=== PATIENT | female | born 1930 | race Asian ===

== ENCOUNTER 2017-10-06 16:23 | Inpatient (IN) | payer OTHER ==
[~2017-10-06] VITALS: Ht 152.4 cm; Wt 54.4 kg
[~2017-10-06 16:23] MED LIST: ALEVE220 MG PO; FUROSEMIDE20 MG PO; LASIX20 MG PO; LISINOPRIL-HCT1 EACH PO; PERCOCET 5/31 TABLET PO; SPIRONOLACTONE25 MG PO
[2017-10-06 16:51] LABS: HEMATOCRIT 40.5 % (36.0-46.0); HEMOGLOBIN 13.1 G/DL (11.9-15.5); MCH 26.5 PG (29.0-34.0); MCHC 32.3 G/DL (30.0-36.0); PLATELET COUNT 112 K/uL (156-360); RBC DIS.WIDTH-CV 15.9 % (11.8-14.6); RBC DIS.WIDTH-SD 46.9 % (39-53); RED BLOOD COUNT 4.94 M/uL (3.80-5.20); WHITE BLOOD COUNT 15.7 K/uL (4.1-10.2)
[2017-10-06 17:02] LABS: CHLORIDE 115 mEq/L (99-109); POTASSIUM 4.4 mEq/L (3.7-5.4); SODIUM 145 mEq/L (136-147)
[2017-10-06 17:03] LABS: GLUCOSE 98 mg/dL (70-99)
[2017-10-06 17:07] LABS: CREATININE 0.8 mg/dL (0.6-1.3); GFR ESTIMATE (CALCULATED) > 59 mL/min/
[2017-10-06 17:08] LABS: UREA NITROGEN (BUN) 34 mg/dL (9-23)
[2017-10-06] MEDS ORDERED: LISINOPRIL20 MG PO (17:09)
[2017-10-06] MEDS ORDERED: ALDACTONE25 MG PO (17:10)
[2017-10-06 17:16] LABS: TROP-I INTERPRETATION NEGATIVE; TROPONIN-I 0.03 ng/mL (0.0-0.30)
[2017-10-06 18:03] LABS: ALBUMIN 2.3 g/dL (3.2-4.8)
[2017-10-06 18:07] LABS: PTT 30.1 SEC (25-37)
[2017-10-06 18:08] LABS: TOTAL BILIRUBIN 1.7 mg/dL (0.0-1.0)
[2017-10-06 18:09] LABS: ALKALINE PHOSPHATASE 141 IU/L (3-129)
[2017-10-06 18:11] LABS: AST (GOT) 51 IU/L (2-34); DIRECT BILIRUBIN 1.1 mg/dL (0.0-0.3)
[2017-10-06 18:12] LABS: ALT (GPT) 33 IU/L (3-49)
[2017-10-06 22:10] LABS: C DIFF TOXIN NEGATIVE (NEGATIVE)
[2017-10-06] MEDS ORDERED: ALEVE220 MG PO (23:54)
[2017-10-07 02:56] VITALS: BP 144/75
[2017-10-07 06:43] LABS: HEMATOCRIT 37.8 % (36.0-46.0); MCH 25.9 PG (29.0-34.0); MCHC 31.7 G/DL (30.0-36.0); MCV 81.5 FL (83-99); PLATELET COUNT 95 K/uL (156-360); RBC DIS.WIDTH-CV 16.1 % (11.8-14.6); RBC DIS.WIDTH-SD 46.9 % (39-53); RED BLOOD COUNT 4.64 M/uL (3.80-5.20); WHITE BLOOD COUNT 14.7 K/uL (4.1-10.2)
[2017-10-07 07:06] LABS: CHLORIDE 112 MEQ/L (99-109); CREATININE 0.9 MG/DL (0.6-1.3); GFR ESTIMATE (CALCULATED) > 59 mL/min/; GLUCOSE 146 mg/dL (70-99); POTASSIUM 4.5 MEQ/L (3.7-5.4); SODIUM 144 MEQ/L (136-147); UREA NITROGEN (BUN) 38 mg/dL (9-23)
[2017-10-07 08:08] VITALS: BP 127/60
[2017-10-07 13:48] LABS: C DIFF TOXIN ND (NEGATIVE)
[2017-10-07 16:03] VITALS: BP 112/59
[2017-10-07 18:45] LABS: HEMATOCRIT 36.8 % (36.0-46.0); HEMOGLOBIN 11.8 G/DL (11.9-15.5)
[2017-10-07 19:39] VITALS: BP 136/61
[2017-10-07 23:28] VITALS: BP 125/59
[2017-10-08 03:13] VITALS: BP 118/58
[2017-10-08 07:42] LABS: BASOPHIL (%) 0.3 % (0-1); EOSINOPHIL (%) 3.4 % (0-5); EOSINOPHIL COUNT 0.4 K/uL (0-0.3); HEMATOCRIT 33.6 % (36.0-46.0); IMMATURE GRANULOCYTE (%) 1.3 % (0.0-0.7); LYMPHOCYTE (%) 17.1 % (15-42); MCH 26.3 PG (29.0-34.0); MCHC 32.7 G/DL (30.0-36.0); MCV 80.4 FL (83-99); MONOCYTE (%) 7.8 % (3-12); MONOCYTE COUNT 0.9 K/uL (0-0.8); NEUTROPHIL (%) 70.1 % (45-76); NEUTROPHIL COUNT 8.1 K/uL (1.8-6.4); RBC DIS.WIDTH-CV 15.9 % (11.8-14.6); RBC DIS.WIDTH-SD 46.1 % (39-53); RED BLOOD COUNT 4.18 M/uL (3.80-5.20); WHITE BLOOD COUNT 11.6 K/uL (4.1-10.2)
[2017-10-08 07:45] LABS: PTT 50.1 SEC (25-37)
[2017-10-08 07:59] LABS: HEMATOLOGY COMMENT 1 SMEAR COMPATIBLE; PLAT.SUFFICIENCY DECREASED
[2017-10-08 08:18] VITALS: BP 127/60
[2017-10-08 08:37] LABS: PLATELET COUNT 55 K/uL (156-360)
[2017-10-08 08:54] LABS: CHLORIDE 114 MEQ/L (99-109); GFR ESTIMATE (CALCULATED) 55 mL/min/; GLUCOSE 91 mg/dL (70-99); POTASSIUM 4.1 MEQ/L (3.7-5.4); SODIUM 143 MEQ/L (136-147); UREA NITROGEN (BUN) 38 mg/dL (9-23)
[2017-10-08 12:46] VITALS: BP 118/56
[2017-10-08 12:54] LABS: TYPE OF FLUID PLEURAL
[2017-10-08 13:54] LABS: BODY FLUID GLUCOSE 131 MG/DL; BODY FLUID LDH 57 IU/L; BODY FLUID PROTEIN < 3.0 G/DL
[2017-10-08 14:09] LABS: APPEARANCE HAZY-COLORLESS; BODY FLUID EOSINOPHILS 0 % (0-25); BODY FLUID RBC'S 1000 /MM^3 (0-100); BODY FLUID WBC'S 145 /MM^3 (0-500); MONONUCLEAR WBC'S 81 %; POLYNUCLEAR WBC'S 19 % (0-25)
[2017-10-08 14:16] LABS: HEMATOCRIT 35.6 % (36.0-46.0); HEMOGLOBIN 11.4 G/DL (11.9-15.5); MCH 26.3 PG (29.0-34.0); MCV 82.2 FL (83-99); RBC DIS.WIDTH-CV 15.9 % (11.8-14.6); RBC DIS.WIDTH-SD 47.6 % (39-53); RED BLOOD COUNT 4.33 M/uL (3.80-5.20); WHITE BLOOD COUNT 9.2 K/uL (4.1-10.2)
[2017-10-08 14:17] LABS: PLATELET COUNT 76 K/uL (156-360)
[2017-10-08 14:36] LABS: ALBUMIN 1.7 G/DL (3.2-4.8); ALKALINE PHOSPHATASE 91 IU/L (3-129); ALT (GPT) 23 IU/L (3-49); AST (GOT) 35 IU/L (2-34); DIRECT BILIRUBIN 0.2 mg/dL (0.0-0.3); LACTATE DEHYDROGENASE 383 IU/L (20-246); TOTAL BILIRUBIN 0.8 MG/DL (0.0-1.0); TOTAL PROTEIN 4.2 G/DL (6.4-8.3)
[2017-10-08 17:13] VITALS: BP 120/58
[2017-10-08 20:00] VITALS: BP 141/64
[2017-10-08 22:49] VITALS: BP 112/55
[2017-10-08 23:38] LABS: HEMATOCRIT 30.5 % (36.0-46.0); HEMOGLOBIN 9.9 G/DL (11.9-15.5); MCV 81.6 FL (83-99)
[2017-10-08 23:47] LABS: INTER. NORMALIZED RATIO 1.2
[2017-10-08 23:49] LABS: PTT 37.4 SEC (25-37)
[2017-10-09] VITALS (39 sets, daily range): BP systolic 84–175; BP diastolic 36–88
[2017-10-09 02:11] LABS: HEMATOCRIT 26.3 % (36.0-46.0); HEMOGLOBIN 8.7 G/DL (11.9-15.5); MCV 81.7 FL (83-99)
[2017-10-09 02:17] LABS: INTER. NORMALIZED RATIO 1.3
[2017-10-09 02:19] LABS: PTT 38.5 SEC (25-37)
[2017-10-09 05:52] LABS: HEMATOCRIT 27.4 % (36.0-46.0); HEMOGLOBIN 8.6 G/DL (11.9-15.5); MCV 84.6 FL (83-99)
[2017-10-09 12:31] LABS: CHLORIDE 114 MEQ/L (99-109); POTASSIUM 4.9 MEQ/L (3.7-5.4); SODIUM 144 MEQ/L (136-147)
[2017-10-09 12:36] LABS: GFR ESTIMATE (CALCULATED) 55 mL/min/; GLUCOSE 128 mg/dL (70-99); PHOSPHORUS 3.8 mg/dL (2.5-4.9); UREA NITROGEN (BUN) 40 mg/dL (9-23)
[2017-10-09 13:47] LABS: HEMATOCRIT 13.6 % (36.0-46.0); HEMOGLOBIN 4.5 G/DL (11.9-15.5); MCV 81.9 FL (83-99)
[2017-10-09 14:21] LABS: BASOPHIL (%) 0.1 % (0-1); EOSINOPHIL (%) 0 % (0-5); IMMATURE GRANULOCYTE (%) 1.1 % (0.0-0.7); LYMPHOCYTE COUNT 0.8 K/uL (1.0-2.8); MCH 26.2 PG (29.0-34.0); MCHC 32.1 G/DL (30.0-36.0); MONOCYTE (%) 6.1 % (3-12); MONOCYTE COUNT 0.5 K/uL (0-0.8); NEUTROPHIL (%) 82.7 % (45-76); NEUTROPHIL COUNT 6.8 K/uL (1.8-6.4); RBC DIS.WIDTH-CV 15.9 % (11.8-14.6); RBC DIS.WIDTH-SD 46.4 % (39-53); WHITE BLOOD COUNT 8.2 K/uL (4.1-10.2)
[2017-10-09 14:24] LABS: RED BLOOD COUNT 1.68 M/uL (3.80-5.20)
[2017-10-09 14:37] LABS: IMM.PLATELET FRACTION 4.5 (1-7); PLAT.SUFFICIENCY VERY DECREASED
[2017-10-09 14:44] LABS: PLATELET COUNT 46 K/uL (156-360)
[2017-10-09 22:19] LABS: APPEARANCE SL.HAZY ((CLEAR)); BILIRUBIN NEGATIVE; BLOOD NEGATIVE; COLOR YELLOW ((YELLOW)); GLUCOSE (STRIP) NEGATIVE; KETONES NEGATIVE; LEUKOCYTES NEGATIVE; NITRITE NEGATIVE; PROTEIN (STRIP) NEGATIVE; SPECIFIC GRAVITY 1.023 (1.000-1.030); UROBILINOGEN 0.2 MG/DL (0.2-1.0)
[2017-10-09 22:35] LABS: BACTERIA NONE SEEN /HPF; EPITHELIAL CELLS RARE /HPF; MUCUS TRACE /LPF; RED BLOOD CELLS 0-5 /HPF (0-5); UCUL ADDED? NO; WHITE BLOOD CELLS 0-5 /HPF (0-5)
[2017-10-09 23:33] LABS: HEMATOCRIT 30.5 % (36.0-46.0); HEMOGLOBIN 10.6 G/DL (11.9-15.5)
[2017-10-10] VITALS (39 sets, daily range): BP systolic 139–171; BP diastolic 71–100
[2017-10-10 06:08] LABS: BASOPHIL (%) 0.4 % (0-1); EOSINOPHIL (%) 0.5 % (0-5); HEMOGLOBIN 12.1 G/DL (11.9-15.5); IMMATURE GRANULOCYTE (%) 2.1 % (0.0-0.7); LYMPHOCYTE (%) 15.9 % (15-42); LYMPHOCYTE COUNT 0.9 K/uL (1.0-2.8); MCH 28.3 PG (29.0-34.0); MCHC 33.6 G/DL (30.0-36.0); MCV 84.1 FL (83-99); MONOCYTE (%) 8.4 % (3-12); MONOCYTE COUNT 0.5 K/uL (0-0.8); NEUTROPHIL (%) 72.7 % (45-76); NEUTROPHIL COUNT 4.2 K/uL (1.8-6.4); RBC DIS.WIDTH-CV 14.8 % (11.8-14.6); RBC DIS.WIDTH-SD 44.8 % (39-53); WHITE BLOOD COUNT 5.7 K/uL (4.1-10.2)
[2017-10-10 06:09] LABS: INTER. NORMALIZED RATIO 1.2
[2017-10-10 06:10] LABS: RED BLOOD COUNT 4.28 M/uL (3.80-5.20)
[2017-10-10 06:12] LABS: PTT 30.1 SEC (25-37)
[2017-10-10 06:37] LABS: CHLORIDE 112 MEQ/L (99-109); CREATININE 0.9 MG/DL (0.6-1.3); GFR ESTIMATE (CALCULATED) > 59 mL/min/; GLUCOSE 105 mg/dL (70-99); SODIUM 149 MEQ/L (136-147); UREA NITROGEN (BUN) 37 mg/dL (9-23)
[2017-10-10 06:48] LABS: IMM.PLATELET FRACTION 3.7 (1-7); PLAT.SUFFICIENCY VERY DECREASED; PLATELET COUNT 39 K/uL (156-360)
[2017-10-10 06:52] LABS: POTASSIUM 3.7 MEQ/L (3.7-5.4)
[2017-10-10 12:20] LABS: HEMATOCRIT 36.8 % (36.0-46.0); HEMOGLOBIN 12.2 G/DL (11.9-15.5); MCH 27.9 PG (29.0-34.0); MCHC 33.2 G/DL (30.0-36.0); MCV 84.2 FL (83-99); RBC DIS.WIDTH-CV 14.9 % (11.8-14.6); RED BLOOD COUNT 4.37 M/uL (3.80-5.20); WHITE BLOOD COUNT 7.9 K/uL (4.1-10.2)
[2017-10-10 12:22] LABS: PLATELET COUNT 74 K/uL (156-360)
[2017-10-11] VITALS (24 sets, daily range): BP systolic 141–168; BP diastolic 67–116
[2017-10-11 04:58] LABS: BASOPHIL (%) 0.2 % (0-1); EOSINOPHIL (%) 0.7 % (0-5); HEMATOCRIT 34.8 % (36.0-46.0); HEMOGLOBIN 11.9 G/DL (11.9-15.5); IMMATURE GRANULOCYTE (%) 1.3 % (0.0-0.7); LYMPHOCYTE (%) 9.4 % (15-42); LYMPHOCYTE COUNT 0.6 K/uL (1.0-2.8); MCH 29.1 PG (29.0-34.0); MCHC 34.2 G/DL (30.0-36.0); MCV 85.1 FL (83-99); MONOCYTE (%) 7.6 % (3-12); MONOCYTE COUNT 0.5 K/uL (0-0.8); NEUTROPHIL (%) 80.8 % (45-76); PLATELET COUNT 76 K/uL (156-360); RBC DIS.WIDTH-CV 15.3 % (11.8-14.6); RBC DIS.WIDTH-SD 47.3 % (39-53); RED BLOOD COUNT 4.09 M/uL (3.80-5.20); WHITE BLOOD COUNT 6.2 K/uL (4.1-10.2)
[2017-10-11 05:11] LABS: ALBUMIN 2.2 g/dL (3.2-4.8); CHLORIDE 113 mEq/L (99-109); POTASSIUM 3.2 mEq/L (3.7-5.4); SODIUM 144 mEq/L (136-147)
[2017-10-11 05:16] LABS: GLUCOSE 258 mg/dL (70-99); TOTAL BILIRUBIN 1.2 mg/dL (0.0-1.0); TOTAL PROTEIN 3.9 g/dL (6.4-8.3)
[2017-10-11 05:18] LABS: CREATININE 0.8 mg/dL (0.6-1.3); GFR ESTIMATE (CALCULATED) > 59 mL/min/
[2017-10-11 05:19] LABS: AST (GOT) 56 IU/L (2-34); UREA NITROGEN (BUN) 34 mg/dL (9-23)
[2017-10-11 05:20] LABS: ALT (GPT) 36 IU/L (3-49)
[2017-10-11 05:22] LABS: ALKALINE PHOSPHATASE 90 IU/L (3-129)
[2017-10-11 05:58] LABS: INTER. NORMALIZED RATIO 1.2
[2017-10-11 18:17] LABS: HEMATOCRIT 40.2 % (36.0-46.0); HEMOGLOBIN 13.2 G/DL (11.9-15.5); MCHC 32.8 G/DL (30.0-36.0); MCV 85.4 FL (83-99); PLATELET COUNT 87 K/uL (156-360); RBC DIS.WIDTH-CV 15.5 % (11.8-14.6); RBC DIS.WIDTH-SD 47.8 % (39-53); RED BLOOD COUNT 4.71 M/uL (3.80-5.20); WHITE BLOOD COUNT 11.3 K/uL (4.1-10.2)
[2017-10-12] VITALS (17 sets, daily range): BP systolic 135–158; BP diastolic 81–96
[2017-10-12 07:35] LABS: BASOPHIL (%) 0.7 % (0-1); BASOPHIL COUNT 0.1 K/uL (0-0.1); EOSINOPHIL (%) 1.6 % (0-5); EOSINOPHIL COUNT 0.2 K/uL (0-0.3); HEMATOCRIT 47.2 % (36.0-46.0); IMMATURE GRANULOCYTE (%) 0.9 % (0.0-0.7); LYMPHOCYTE (%) 8.1 % (15-42); MCH 27.8 PG (29.0-34.0); MCHC 31.8 G/DL (30.0-36.0); MCV 87.4 FL (83-99); MONOCYTE (%) 9.3 % (3-12); MONOCYTE COUNT 1.1 K/uL (0-0.8); NEUTROPHIL (%) 79.4 % (45-76); NEUTROPHIL COUNT 9.6 K/uL (1.8-6.4); PLATELET COUNT 77 K/uL (156-360); RBC DIS.WIDTH-SD 49.7 % (39-53); WHITE BLOOD COUNT 12.1 K/uL (4.1-10.2)
[2017-10-12 08:11] LABS: CHLORIDE 113 MEQ/L (99-109); CREATININE 0.6 MG/DL (0.6-1.3); GFR ESTIMATE (CALCULATED) > 59 mL/min/; GLUCOSE 135 mg/dL (70-99); MAGNESIUM 1.7 mg/dl (1.3-2.7); SODIUM 143 MEQ/L (136-147); UREA NITROGEN (BUN) 23 mg/dL (9-23)
[2017-10-12 08:14] LABS: PHOSPHORUS 1.8 mg/dL (2.5-4.9); POTASSIUM 3.9 MEQ/L (3.7-5.4)
[2017-10-13 03:23] VITALS: BP 139/87
[2017-10-13 06:26] LABS: BASOPHIL (%) 0.3 % (0-1); BASOPHIL COUNT 0.1 K/uL (0-0.1); EOSINOPHIL (%) 1.3 % (0-5); EOSINOPHIL COUNT 0.2 K/uL (0-0.3); HEMATOCRIT 50.9 % (36.0-46.0); HEMOGLOBIN 16.8 G/DL (11.9-15.5); IMMATURE GRANULOCYTE (%) 0.8 % (0.0-0.7); LYMPHOCYTE (%) 8.8 % (15-42); LYMPHOCYTE COUNT 1.4 K/uL (1.0-2.8); MCH 28.3 PG (29.0-34.0); MCV 85.8 FL (83-99); MONOCYTE (%) 8.6 % (3-12); MONOCYTE COUNT 1.4 K/uL (0-0.8); NEUTROPHIL (%) 80.2 % (45-76); NEUTROPHIL COUNT 12.9 K/uL (1.8-6.4); PLATELET COUNT 73 K/uL (156-360); RBC DIS.WIDTH-CV 17.4 % (11.8-14.6); RBC DIS.WIDTH-SD 49.4 % (39-53); RED BLOOD COUNT 5.93 M/uL (3.80-5.20); WHITE BLOOD COUNT 16.1 K/uL (4.1-10.2)
[2017-10-13 06:45] LABS: ALBUMIN 2.2 G/DL (3.2-4.8); ALKALINE PHOSPHATASE 105 IU/L (3-129); ALT (GPT) 24 IU/L (3-49); AST (GOT) 32 IU/L (2-34); CHLORIDE 110 MEQ/L (99-109); CREATININE 0.6 MG/DL (0.6-1.3); GFR ESTIMATE (CALCULATED) > 59 mL/min/; GLUCOSE 121 mg/dL (70-99); POTASSIUM 4.2 MEQ/L (3.7-5.4); SODIUM 139 MEQ/L (136-147); TOTAL PROTEIN 4.5 G/DL (6.4-8.3); UREA NITROGEN (BUN) 24 mg/dL (9-23)
[2017-10-13 06:46] LABS: TOTAL BILIRUBIN 2.3 MG/DL (0.0-1.0)
[2017-10-13 08:19] VITALS: BP 142/73
[2017-10-13 12:23] VITALS: BP 141/81
[2017-10-13 15:46] VITALS: BP 137/78
[2017-10-13 19:25] VITALS: BP 140/79
[2017-10-14 00:13] VITALS: BP 131/79
[2017-10-14 03:55] VITALS: BP 118/69
[2017-10-14 05:54] LABS: BASOPHIL (%) 0.4 % (0-1); BASOPHIL COUNT 0.1 K/uL (0-0.1); EOSINOPHIL (%) 3.1 % (0-5); EOSINOPHIL COUNT 0.5 K/uL (0-0.3); HEMATOCRIT 48.2 % (36.0-46.0); HEMOGLOBIN 15.8 G/DL (11.9-15.5); IMMATURE GRANULOCYTE (%) 0.9 % (0.0-0.7); LYMPHOCYTE (%) 9.2 % (15-42); LYMPHOCYTE COUNT 1.5 K/uL (1.0-2.8); MCH 28.3 PG (29.0-34.0); MCHC 32.8 G/DL (30.0-36.0); MCV 86.2 FL (83-99); MONOCYTE (%) 8.9 % (3-12); MONOCYTE COUNT 1.5 K/uL (0-0.8); NEUTROPHIL (%) 77.5 % (45-76); PLATELET COUNT 90 K/uL (156-360); RED BLOOD COUNT 5.59 M/uL (3.80-5.20); WHITE BLOOD COUNT 16.7 K/uL (4.1-10.2)
[2017-10-14 06:19] LABS: CHLORIDE 109 MEQ/L (99-109); CREATININE 0.7 MG/DL (0.6-1.3); GFR ESTIMATE (CALCULATED) > 59 mL/min/; GLUCOSE 166 mg/dL (70-99); POTASSIUM 4.1 MEQ/L (3.7-5.4); SODIUM 137 MEQ/L (136-147); UREA NITROGEN (BUN) 26 mg/dL (9-23)
[2017-10-14 08:08] VITALS: BP 128/69
[2017-10-14 12:53] VITALS: BP 128/72
[2017-10-14 16:04] LABS: BACTERIA NONE SEEN /HPF; EPITHELIAL CELLS NONE SEEN /HPF; MUCUS 3+ /LPF; RED BLOOD CELLS 30-40 /HPF (0-5); WHITE BLOOD CELLS 0-5 /HPF (0-5)
[2017-10-14 16:20] VITALS: BP 156/86
[2017-10-14 19:09] LABS: MCH 27.6 PG (29.0-34.0); MCV 86.2 FL (83-99); PLATELET COUNT 100 K/uL (156-360); RBC DIS.WIDTH-SD 51.8 % (39-53); WHITE BLOOD COUNT 17.8 K/uL (4.1-10.2)
[2017-10-14 20:00] VITALS: BP 151/84
[2017-10-15] VITALS (7 sets, daily range): BP systolic 119–131; BP diastolic 64–77
[2017-10-15 08:28] LABS: BASOPHIL (%) 0.4 % (0-1); BASOPHIL COUNT 0.1 K/uL (0-0.1); EOSINOPHIL (%) 1.6 % (0-5); EOSINOPHIL COUNT 0.3 K/uL (0-0.3); HEMATOCRIT 47.6 % (36.0-46.0); HEMOGLOBIN 15.5 G/DL (11.9-15.5); LYMPHOCYTE (%) 8.9 % (15-42); LYMPHOCYTE COUNT 1.5 K/uL (1.0-2.8); MCH 28.1 PG (29.0-34.0); MCHC 32.6 G/DL (30.0-36.0); MCV 86.4 FL (83-99); MONOCYTE (%) 8.6 % (3-12); MONOCYTE COUNT 1.4 K/uL (0-0.8); NEUTROPHIL (%) 79.5 % (45-76); NEUTROPHIL COUNT 13.1 K/uL (1.8-6.4); PLATELET COUNT 87 K/uL (156-360); RBC DIS.WIDTH-CV 17.1 % (11.8-14.6); RBC DIS.WIDTH-SD 52.2 % (39-53); RED BLOOD COUNT 5.51 M/uL (3.80-5.20); WHITE BLOOD COUNT 16.5 K/uL (4.1-10.2)
[2017-10-15 09:13] LABS: CHLORIDE 112 MEQ/L (99-109); CREATININE 0.7 MG/DL (0.6-1.3); GFR ESTIMATE (CALCULATED) > 59 mL/min/; POTASSIUM 4.5 MEQ/L (3.7-5.4); SODIUM 142 MEQ/L (136-147); UREA NITROGEN (BUN) 26 mg/dL (9-23)
[2017-10-15 09:17] LABS: GLUCOSE 100 mg/dL (70-99)
[2017-10-16 04:00] VITALS: BP 117/67
[2017-10-16 07:09] VITALS: BP 120/71
[2017-10-16 07:12] LABS: HEMATOCRIT 50.1 % (36.0-46.0); HEMOGLOBIN 16.1 G/DL (11.9-15.5); MCH 28.3 PG (29.0-34.0); MCHC 32.1 G/DL (30.0-36.0); MCV 88.2 FL (83-99); RBC DIS.WIDTH-CV 18.2 % (11.8-14.6); RBC DIS.WIDTH-SD 54.4 % (39-53); RED BLOOD COUNT 5.68 M/uL (3.80-5.20); WHITE BLOOD COUNT 15.6 K/uL (4.1-10.2)
[2017-10-16 07:23] LABS: CHLORIDE 112 MEQ/L (99-109); CREATININE 0.6 MG/DL (0.6-1.3); GFR ESTIMATE (CALCULATED) > 59 mL/min/; GLUCOSE 97 mg/dL (70-99); POTASSIUM 4.6 MEQ/L (3.7-5.4); SODIUM 141 MEQ/L (136-147); UREA NITROGEN (BUN) 26 mg/dL (9-23)
[2017-10-16 07:44] LABS: BASOPHIL (%) 0.6 % (0-1); BASOPHIL COUNT 0.1 K/uL (0-0.1); EOSINOPHIL (%) 2.6 % (0-5); EOSINOPHIL COUNT 0.4 K/uL (0-0.3); IMMATURE GRANULOCYTE (%) 1.9 % (0.0-0.7); LYMPHOCYTE (%) 10.7 % (15-42); LYMPHOCYTE COUNT 1.7 K/uL (1.0-2.8); MONOCYTE (%) 8.7 % (3-12); MONOCYTE COUNT 1.4 K/uL (0-0.8); NEUTROPHIL (%) 75.5 % (45-76); NEUTROPHIL COUNT 11.8 K/uL (1.8-6.4)
[2017-10-16 07:45] LABS: PLAT.SUFFICIENCY VERY DECREASED
[2017-10-16 07:57] LABS: PLATELET COUNT 58 K/uL (156-360)
[2017-10-16 09:58] LABS: HEMATOCRIT 48.6 % (36.0-46.0); HEMOGLOBIN 15.5 G/DL (11.9-15.5); MCH 27.7 PG (29.0-34.0); MCHC 31.9 G/DL (30.0-36.0); MCV 86.8 FL (83-99); NRBC (%) 0.1 /100 WBC (0-0); PLATELET COUNT 69 K/uL (156-360); RBC DIS.WIDTH-CV 17.4 % (11.8-14.6); RBC DIS.WIDTH-SD 52.8 % (39-53); WHITE BLOOD COUNT 14.8 K/uL (4.1-10.2)
[2017-10-16 11:04] VITALS: BP 127/72
[2017-10-16 15:14] VITALS: BP 119/74
[2017-10-16 19:31] VITALS: BP 119/63
[2017-10-17] VITALS: BP 139/63
[2017-10-17 01:05] LABS: HEMOGLOBIN 14.9 G/DL (11.9-15.5); MCH 28.6 PG (29.0-34.0); MCHC 33.1 G/DL (30.0-36.0); MCV 86.4 FL (83-99); PLATELET COUNT 80 K/uL (156-360); RBC DIS.WIDTH-CV 17.4 % (11.8-14.6); RBC DIS.WIDTH-SD 52.2 % (39-53); RED BLOOD COUNT 5.21 M/uL (3.80-5.20); WHITE BLOOD COUNT 13.4 K/uL (4.1-10.2)
[2017-10-17 04:00] VITALS: BP 120/62
[2017-10-17 06:09] LABS: HEMATOCRIT 46.1 % (36.0-46.0); HEMOGLOBIN 14.9 G/DL (11.9-15.5); MCHC 32.3 G/DL (30.0-36.0); MCV 86.5 FL (83-99); PLATELET COUNT 83 K/uL (156-360); RBC DIS.WIDTH-CV 17.6 % (11.8-14.6); RED BLOOD COUNT 5.33 M/uL (3.80-5.20); WHITE BLOOD COUNT 14.2 K/uL (4.1-10.2)
[2017-10-17 06:41] LABS: ALBUMIN 1.7 G/DL (3.2-4.8); ALKALINE PHOSPHATASE 103 IU/L (3-129); ALT (GPT) 19 IU/L (3-49); AST (GOT) 33 IU/L (2-34); CHLORIDE 112 MEQ/L (99-109); CREATININE 0.8 MG/DL (0.6-1.3); DIRECT BILIRUBIN 1.7 mg/dL (0.0-0.3); GFR ESTIMATE (CALCULATED) > 59 mL/min/; GLUCOSE 77 mg/dL (70-99); SODIUM 142 MEQ/L (136-147); UREA NITROGEN (BUN) 29 mg/dL (9-23)
[2017-10-17 06:46] LABS: TOTAL BILIRUBIN 3.3 MG/DL (0.0-1.0)
[2017-10-17 07:02] LABS: BASOPHIL (%) 0.5 % (0-1); BASOPHIL COUNT 0.1 K/uL (0-0.1); EOSINOPHIL (%) 1.4 % (0-5); EOSINOPHIL COUNT 0.2 K/uL (0-0.3); IMMATURE GRANULOCYTE (%) 1.3 % (0.0-0.7); LYMPHOCYTE (%) 11.4 % (15-42); LYMPHOCYTE COUNT 1.6 K/uL (1.0-2.8); MONOCYTE (%) 7.5 % (3-12); MONOCYTE COUNT 1.1 K/uL (0-0.8); NEUTROPHIL (%) 77.9 % (45-76)
[2017-10-17 07:15] VITALS: BP 109/58
[2017-10-17 07:33] LABS: INTER. NORMALIZED RATIO 1.1
[2017-10-17 07:50] LABS: ALBUMIN 1.7 G/DL (3.2-4.8); ALKALINE PHOSPHATASE 99 IU/L (3-129); ALT (GPT) 18 IU/L (3-49); AST (GOT) 37 IU/L (2-34); DIRECT BILIRUBIN 1.5 mg/dL (0.0-0.3); TOTAL BILIRUBIN 3.3 MG/DL (0.0-1.0)
[2017-10-17 11:12] VITALS: BP 110/65
[2017-10-17 15:09] VITALS: BP 112/68
[2017-10-17 19:26] VITALS: BP 134/59
[2017-10-18] VITALS (8 sets, daily range): BP systolic 112–130; BP diastolic 62–68
[2017-10-18 08:02] LABS: CHLORIDE 112 MEQ/L (99-109); CREATININE 1.2 MG/DL (0.6-1.3); GFR ESTIMATE (CALCULATED) 45 mL/min/; POTASSIUM 4.9 MEQ/L (3.7-5.4); SODIUM 142 MEQ/L (136-147); UREA NITROGEN (BUN) 38 mg/dL (9-23)
[2017-10-18 08:14] LABS: GLUCOSE 127 mg/dL (70-99)
[2017-10-18 08:36] LABS: BASOPHIL (%) 0.2 % (0-1); EOSINOPHIL (%) 2.3 % (0-5); EOSINOPHIL COUNT 0.4 K/uL (0-0.3); HEMATOCRIT 43.3 % (36.0-46.0); HEMOGLOBIN 14.2 G/DL (11.9-15.5); IMMATURE GRANULOCYTE (%) 1.2 % (0.0-0.7); LYMPHOCYTE COUNT 1.8 K/uL (1.0-2.8); MCH 28.5 PG (29.0-34.0); MCHC 32.8 G/DL (30.0-36.0); MCV 86.8 FL (83-99); MONOCYTE COUNT 1.3 K/uL (0-0.8); NEUTROPHIL (%) 77.3 % (45-76); NEUTROPHIL COUNT 12.6 K/uL (1.8-6.4); NRBC (%) 0.1 /100 WBC (0-0); PLATELET COUNT 84 K/uL (156-360); RBC DIS.WIDTH-CV 17.8 % (11.8-14.6); RBC DIS.WIDTH-SD 54.8 % (39-53); RED BLOOD COUNT 4.99 M/uL (3.80-5.20); WHITE BLOOD COUNT 16.3 K/uL (4.1-10.2)
[2017-10-19 03:35] VITALS: BP 116/68
[2017-10-19 06:44] LABS: BASOPHIL (%) 0.3 % (0-1); EOSINOPHIL COUNT 0.3 K/uL (0-0.3); HEMATOCRIT 41.6 % (36.0-46.0); HEMOGLOBIN 13.7 G/DL (11.9-15.5); LYMPHOCYTE (%) 13.2 % (15-42); LYMPHOCYTE COUNT 1.4 K/uL (1.0-2.8); MCH 28.4 PG (29.0-34.0); MCHC 32.9 G/DL (30.0-36.0); MCV 86.3 FL (83-99); MONOCYTE (%) 8.8 % (3-12); MONOCYTE COUNT 0.9 K/uL (0-0.8); NEUTROPHIL (%) 73.7 % (45-76); NEUTROPHIL COUNT 7.9 K/uL (1.8-6.4); PLATELET COUNT 77 K/uL (156-360); RBC DIS.WIDTH-CV 17.6 % (11.8-14.6); RBC DIS.WIDTH-SD 54.6 % (39-53); RED BLOOD COUNT 4.82 M/uL (3.80-5.20); WHITE BLOOD COUNT 10.7 K/uL (4.1-10.2)
[2017-10-19 07:13] LABS: CHLORIDE 106 MEQ/L (99-109); GFR ESTIMATE (CALCULATED) 55 mL/min/; POTASSIUM 4.7 MEQ/L (3.7-5.4); SODIUM 139 MEQ/L (136-147); UREA NITROGEN (BUN) 37 mg/dL (9-23)
[2017-10-19 07:15] LABS: GLUCOSE 92 mg/dL (70-99)
[2017-10-19 08:13] VITALS: BP 121/61
[2017-10-19] MEDS ORDERED: SPIRONOLACTONE50 MG PO (10:54)
[2017-10-19] MEDS ORDERED: FUROSEMIDE20 MG PO (10:55)
[2017-10-19] MEDS ORDERED: PROTONIX40 MG PO (10:56)
[2017-10-19 11:38] VITALS: BP 135/68
== END 2017-10-19 16:18 | DRG 357 ==
LOC: EME 16:23 → EDOF 23:45 → 4WEST 23:45 → ENRESERV 23:48 → 3EAST 10-07 02:39 → 4EAST 10-09 00:36 → 4WEST 10-09 02:11 → ENRESERV 10-09 02:11 → 4WEST 10-09 03:01 → ENRESERV 10-12 17:15 → 5SOUTH 10-12 18:21 → ENPENDDIS 10-19 13:56 → 5SOUTH 10-19 16:18
PROVIDERS: Emergency Medicine; Hospitalist; Internal Medicine; Internal Medicine Gastroenterology; Internal Medicine Medical Oncology; Nurse Practitioner Adult Health; Specialist; Surgery
PROC: 0W993ZZ Drainage of Right Pleural Cavity, Percutaneous Approach (ICD-10-PCS; principal; 2017-10-08)
PROC: 30233N1 Transfusion of Nonautologous Red Blood Cells into Peripheral Vein, Percutaneous Approach (ICD-10-PCS; 2017-10-09)
PROC: 30233L1 Transfusion of Nonautologous Fresh Plasma into Peripheral Vein, Percutaneous Approach (ICD-10-PCS; 2017-10-09)
PROC: 0DJ08ZZ Inspection of Upper Intestinal Tract, Via Natural or Artificial Opening Endoscopic (ICD-10-PCS; 2017-10-10)
PROC: 06H03DZ Insertion of Intraluminal Device into Inferior Vena Cava, Percutaneous Approach (ICD-10-PCS; 2017-10-10)
PROC: 0W993ZZ Drainage of Right Pleural Cavity, Percutaneous Approach (ICD-10-PCS; 2017-10-15)
PROC: 0W9930Z Drainage of Right Pleural Cavity with Drainage Device, Percutaneous Approach (ICD-10-PCS; 2017-10-18)
DX: K25.4 Chronic or unspecified gastric ulcer with hemorrhage (principal); D62 Acute posthemorrhagic anemia; I82.401 Acute embolism and thrombosis of unspecified deep veins of right lower extremity; D69.59 Other secondary thrombocytopenia; E87.70 Fluid overload, unspecified; J91.8 Pleural effusion in other conditions classified elsewhere; R18.8 Other ascites; E87.0 Hyperosmolality and hypernatremia; D75.1 Secondary polycythemia; I49.5 Sick sinus syndrome; E87.8 Other disorders of electrolyte and fluid balance, not elsewhere classified; J90 Pleural effusion, not elsewhere classified; I82.5Z1 Chronic embolism and thrombosis of unspecified deep veins of right distal lower extremity; I82.501 Chronic embolism and thrombosis of unspecified deep veins of right lower extremity; J98.11 Atelectasis; R13.10 Dysphagia, unspecified; R60.0 Localized edema; B19.20 Unspecified viral hepatitis C without hepatic coma; K74.60 Unspecified cirrhosis of liver; K72.10 Chronic hepatic failure without coma; E88.09 Other disorders of plasma-protein metabolism, not elsewhere classified; R09.02 Hypoxemia; Z51.5 Encounter for palliative care; M19.90 Unspecified osteoarthritis, unspecified site; Z79.899 Other long term (current) drug therapy; Z95.0 Presence of cardiac pacemaker; R19.7 Diarrhea, unspecified; I10 Essential (primary) hypertension; Z79.01 Long term (current) use of anticoagulants; B18.2 Chronic viral hepatitis C; B02.9 Zoster without complications
CPT/HCPCS: 32557; 71045; 71046; 71275; 74018; 74177; 76604; 76705; 76942; 80048; 80053; 80076; 81003; 81015; 82945; 82948; 83615; 83615 91; 83630; 83735; 83880; 84100; 84157; 84484; 84520; 85014; 85018; 85025; 85025 91; 85027; 85610; 85730; 86850; 86900; 86901; 86920; 87070; 87075; 87116; 87177; 87205; 87206; 87329; 87493; 87502; 87506; 87641; 88108; 89051; 92610 GN; 93005; 93306; 93970; 94640; 94799; 97530 GP; 99281; 99285; C1729; C1751; C1769; C1894; C9113; J0690; J0696; J1940; J2250; J2354; J2405; J3010; J3475; J7030; J7040; J7050; P9016; P9017; P9035; P9037

== ENCOUNTER 2017-10-26 10:07 | Emergency (ER) | payer OTHER ==
[~2017-10-26] VITALS: Ht 149.9 cm; Wt 36.0 kg
[~2017-10-26 10:07] MED LIST changes: +ALDACTONE25 MG PO; +LISINOPRIL20 MG PO; +PROTONIX40 MG PO; +SPIRONOLACTONE50 MG PO
[2017-10-26 13:18] VITALS: BP 152/64
== END 2017-10-26 13:20 ==
LOC: EME 10:07
DX: R51 Headache (principal); M25.532 Pain in left wrist; R13.10 Dysphagia, unspecified; W18.30XA Fall on same level, unspecified, initial encounter; Y93.01 Activity, walking, marching and hiking; I10 Essential (primary) hypertension; Z95.0 Presence of cardiac pacemaker
CPT/HCPCS: 70450; 71046; 72125; 73110; 99281; 99284

== ENCOUNTER → 2017-12-07 | Outpatient (CLI) | payer OTHER ==
[~2017-12-07] MED LIST changes: +ALEVE220 M2 PO; +SYNTHROID25 MCG PO
[2017-12-07 15:28] LABS: HEMOGLOBIN 12.6 G/DL (11.9-15.5); MCH 26.4 PG (29.0-34.0); MCHC 33.2 G/DL (30.0-36.0); MCV 79.5 FL (83-99); RBC DIS.WIDTH-CV 14.5 % (11.8-14.6); RBC DIS.WIDTH-SD 41.6 % (39-53); RED BLOOD COUNT 4.78 M/uL (3.80-5.20); WHITE BLOOD COUNT 13.6 K/uL (4.1-10.2)
[2017-12-07 15:40] LABS: INTER. NORMALIZED RATIO 1.1
[2017-12-07 15:42] LABS: PTT 25.2 SEC (25-37)
[2017-12-07 16:38] LABS: PLATELET COUNT 116 K/uL (156-360)
== END | disposition home or self-care (01) ==
LOC: OPR 14:00 → EDSTATUS 14:00 → OPR 14:22
PROVIDERS: Radiology Diagnostic Radiology
DX: T85.79XA Infection and inflammatory reaction due to other internal prosthetic devices, implants and grafts, initial encounter (principal)
CPT/HCPCS: 32557; 85027; 85610; 85730; 87070; 87077; 87147; 87186; 87205; C1729; J3010